=== PATIENT | female | born 1990 | race Caucasian/White ===

== ENCOUNTER 2019-08-02 13:26 | Emergency (ER) | payer OTHER ==
[2019-08-02 13:47] VITALS: BP 117/72
--- NOTE | 2019-08-02 14:17 | UC ---
Shortness of Breath HPI - HPI Summary HPI Summary: Patient is a 29-year-old female who presents to the urgent care with a chief complaint of having episodes of shortness of breath. She has history of asthma as a child but she does not have any episodes on the a couple weeks ago. She denies any fever, denies any cough, denies any chest pain. She has no complaints. - History of Current Complaint Chief Complaint: UCRespiratory Stated Complaint: ASTHMA Time Seen by Provider: 08/02/19 14:01 Hx Obtained From: Patient Hx Last Menstrual Period: on bc, does not get it ?: No Onset/Duration: Sudden Onset Current Severity: None - Allergy/Home Medications Allergies/Adverse Reactions: Allergies Allergy/AdvReac Type Severity Reaction Status Date / Time bronopol Allergy Rash Verified 08/02/19 13:49 cefaclor Allergy Unknown Verified 08/02/19 13:49 Reaction Details methylisothiazolinone Allergy Rash Verified 08/02/19 13:49 gold sodium thiosulfate Allergy Rash Uncoded 08/02/19 13:49 shellac Allergy Rash Uncoded 08/02/19 13:49 Home Medications: Home Medications Dextroamphetamine/Amphetamine [Adderall 20 mg Tablet] 1 tab PO BID 08/02/19 [ History Confirmed 08/02/19] Norethindrone-E.estradiol-Iron [Loestrin Fe 1-20 Tablet] 1 tab PO DAILY [History Confirmed 08/02/19] PMH/Surg Hx/FS Hx/Imm Hx Previously Healthy: Yes Respiratory History: Asthma - Surgical History Surgical History: None - Family History Known Family History: Positive: Hypertension - Social History Alcohol Use: Occasionally Substance Use Type: None Smoking Status (MU): Never Smoked Tobacco Review of Systems All Other Systems Reviewed And Are Negative: Yes Constitutional: Positive: Negative Skin: Positive: Negative Eyes: Positive: Negative ENT: Positive: Negative Respiratory: Positive: Negative Cardiovascular: Positive: Negative Gastrointestinal: Positive: Negative Genitourinary: Positive: Negative Motor: Positive: Negative Neurovascular: Positive: Negative Musculoskeletal: Positive: Negative Neurological: Positive: Negative Psychological: Positive: Negative Is Patient Immunocompromised?: No Physical Exam - Summary Physical Exam Summary: VITAL SIGNS: Reviewed. GENERAL: Patient is a well developed and nourished female who is lying comfortably in the stretcher. Patient is not in any acute respiratory distress. HEAD AND FACE: No signs of trauma. No ecchymosis, hematomas or skull depressions. No sinus tenderness. EYES: PERRLA, EOMI x 2, No injected conjunctiva, no nystagmus. EARS: Hearing grossly intact. Ear canals and tympanic membranes are within normal limits. MOUTH: Oropharynx within normal limits. NECK: Supple, trachea is midline, no adenopathy, no JVD, no carotid bruit, no c- spine tenderness, neck with full ROM. CHEST: Symmetric, no tenderness at palpation LUNGS: Clear to auscultation bilaterally. No wheezing or crackles. CVS: Regular rate and rhythm, S1 and S2 present, no murmurs or gallops appreciated. ABDOMEN: Soft, non-tender. No signs of distention. No rebound no guarding, and no masses palpated. Bowel sounds are normal. EXTREMITIES: FROM in all major joints, no edema, no cyanosis or clubbing. NEURO: Alert and oriented x 3. No acute neurological deficits. Speech is normal and follows commands. SKIN: Dry and warm Triage Information Reviewed: Yes Appearance: Well-Appearing Vital Signs: Initial Vital Signs Temp 97.8 F 08/02/19 13:42 Pulse 76 08/02/19 13:42 Resp 18 08/02/19 13:42 BP 117/72 08/02/19 13:42 Pulse Ox 98 08/02/19 13:42 Vital Signs Reviewed: Yes Shortness of Breath Dx - Course Course Of Treatment: In UC patient is asymptomatic. She will be given a prescription of Albuterol to use as needed. Patient will follow with the primary care physician the next 2-3 days. If symptoms worsen she should go to the emergency department for management. - Differential Dx/Diagnosis Provider Diagnosis: Asthma Discharge ED - Sign-Out/Discharge Documenting (check all that apply): Patient Departure All imaging exams completed and their final reports reviewed: No Studies - Discharge Plan Condition: Stable Disposition: HOME Prescriptions: Albuterol HFA INHALER* [Ventolin HFA Inhaler*] 1 puff INH Q4H PRN #1 mdi PRN Reason: Shortness Of Breath Patient Education Materials: Asthma (ED) Referrals: No Primary Care Phys,NOPCP [Primary Care Provider] - [facility] [Outside] Additional Instructions: Take medications as instructed. Follow with the primary care physician next 2-3 days. - Billing Disposition and Condition Condition: STABLE Disposition: Home
== END 2019-08-02 14:29 | disposition home or self-care (01) ==
LOC: UCEAST 13:26
DX: J45.909 Unspecified asthma, uncomplicated (principal); Z88.8 Allergy status to other drugs, medicaments and biological substances; Z88.1 Allergy status to other antibiotic agents; Z91.09 Other allergy status, other than to drugs and biological substances
CPT/HCPCS: 99202; G0463